=== PATIENT | female | born 1955 | race Caucasian/White ===

== ENCOUNTER 2022-01-22 08:26 | Emergency (ER) | payer BC ==
[~2022-01-22] VITALS: Ht 177.8 cm; Wt 99.8 kg
[2022-01-22 08:54] LABS: APPEARANCE,URINE Clear (CLEAR); BILIRUBIN,URINE Negative (NEGATIVE); COLOR,URINE Yellow (YELLOW); GLUCOSE, URINE (UA) Negative (NEGATIVE); KETONES,URINE Trace mg/dL (NEGATIVE); LEUKOCYTE ESTERASE ,URINE Trace (NEGATIVE); NITRATE,URINE Negative (NEGATIVE); OCCULT BLOOD,URINE Moderate (NEGATIVE); PROTEIN,URINE Trace mg/dL (NEGATIVE); UROBILINOGEN,URINE 0.2 mg/dL (0.2-1.0)
[2022-01-22 09:20] VITALS: BP 119/84
[2022-01-22 09:31] LABS: BACTERIA,URINE Few /HPF (None Seen); WBC,URINE 0-1 /HPF (0-1)
== END 2022-01-22 09:25 | disposition home or self-care (01) ==
LOC: EDH 08:26
DX: R33.9 Retention of urine, unspecified (principal); I10 Essential (primary) hypertension
CPT/HCPCS: 51702; 81001

== ENCOUNTER 2022-01-23 18:30 | Emergency (ER) | payer BC ==
[~2022-01-23] VITALS: Ht 177.8 cm; Wt 99.8 kg
[2022-01-23 18:35] VITALS: BP 143/92
== END 2022-01-23 19:42 | disposition home or self-care (01) ==
LOC: EDH 18:30
DX: T83.9XXA Unspecified complication of genitourinary prosthetic device, implant and graft, initial encounter (principal); I10 Essential (primary) hypertension; Z90.89 Acquired absence of other organs; Z98.890 Other specified postprocedural states; Z60.2 Problems related to living alone